=== PATIENT | female | born 1985 | race American Indian/Alaskan Native ===

== ENCOUNTER 2019-05-24 08:41 | Day surgery (SDC) | payer BC, MEDICAID ==
[2019-05-24] MEDS ORDERED: LACTATED RINGERS 1,000 ML IV SCH (09:00)
--- NOTE | 2019-05-24 09:17 | Short Stay Summary ---
Short Stay Documentation Date of service: 05/24/19 Narrative H&P: Pt is a 34yo BF LMP 05/21/19 presents for surgical evaluation and treatment of prolonged vaginal bleeding uncontrolled with hormonal therapy. - History Principal diagnosis: Menorrhagia H&P: obtained from office Past Medical History: hypertension, other (asthma) Past Surgical History: No surgical history Social history: no significant social history, single - Allergies and Medications Current Medications: Allergies atropine sulfate [From Lomotil] Allergy (Verified 05/18/19 17:19) Hives Home Medications Medication Instructions Recorded Confirmed Last Taken Type No Known Home Medications [No 05/18/19 05/18/19 Unknown History Reported Home Medications] Active Medications Lactated Ringer's (Lactated Ringers) 1,000 mls @ 100 mls/hr IV DIRECT ADELINE Last Admin: 05/24/19 09:11 Dose: 100 mls/hr Documented by: - Physical exam General appearance: no acute distress Integumentary: no rash HEENT: Atraumatic Lungs: Clear to auscultation Breasts: deferred Heart: Regular rate Gastrointestinal: normal Female Genitourinary: deferred Rectal Exam: deferred Extremities: no ischemia, No edema Neurological: Normal gait, Normal speech - Brief post op/procedure progress note Date of procedure: 05/24/19 Pre-op diagnosis: Menorrhagia Post-op diagnosis: same Procedure: 1. Hysteroscopy 2. Novasure endometrial ablation Anesthesia: MAC Findings: A 8-10 weeks size uterus with lush amounts of endometrial tissue. No submucosal masses seen. Surgeon: EVELYNE CANTU Estimated blood loss: 50-100ml Pathology: list (endometrial tissue) Specimen disposition: to lab Condition: stable - Hospital course Hospital course: Unremarkable. - Disposition Condition at discharge: Good Disposition: DC-01 TO HOME OR SELFCARE - Discharge Diagnoses (1) Menorrhagia with irregular cycle Status: Resolved Short Stay Discharge Plan Activity: no restrictions Diet: regular Follow up with: PRIMARY MD LEXX [Primary Care Provider] - 7 Days EVELYNE CANTU MD [Staff Physician] - 14 Days Prescriptions: Acetaminophen/Codeine [Tylenol /Codeine # 3 tab] 1 tab PO Q6H PRN #30 tab PRN Reason: Pain, Moderate (4-6)
[2019-05-24] MEDS ORDERED: BACTERIOSTATIC SODIUM CHLORIDE 0.9% 30 ML VIAL INFILTRATI ONE (09:18)
[2019-05-24] MEDS ORDERED: fentaNYL 100 MCG/2 ML INJ IV PRN (09:23)
--- NOTE | 2019-05-24 09:23 | Anesthesia Day of Surgery ---
Anesthesia Day of Surgery - Day of Surgery Patient Examined: Yes Patient H&P Reviewed: Yes Patient is NPO: Yes
--- NOTE | 2019-05-24 09:23 | Anesthesia Consultation ---
Anesthesia Consult and Med Hx Date of service: 05/24/19 - Airway Anesthetic Teeth Evaluation: Good (large cavity lower left molar) ROM Head & Neck: Adequate Mental/Hyoid Distance: Adequate Mallampati Class: Class I Intubation Access Assessment: Good - Pulmonary Exam CTA: Yes - Cardiac Exam Cardiac Exam: RRR - Pre-Operative Health Status ASA Pre-Surgery Classification: ASA2 Proposed Anesthetic Plan: General - Pulmonary Hx Smoking: Yes Hx Asthma: Yes (no symptoms in >10yrs) Hx Respiratory Symptoms: Yes (flu-like symptoms in 03/2019; now resolved) - Cardiovascular System Hx Hypertension: Yes (no antihypertensives) Hx Heart Attack/AMI: No Hx Percutaneous Transluminal Coronary Angioplasty (PTCA): No - Central Nervous System CVA: No - Gastrointestinal Hx Gastroesophageal Reflux Disease: Yes (gastritis, IBS) - Endocrine Hx Renal Disease: No Hx Liver Disease: No Hx Insulin Dependent Diabetes: No Hx Non-Insulin Dependent Diabetes: No Hx Thyroid Disease: No - Other Systems Hx Alcohol Use: Yes (Occas) Hx Obesity: Yes (BMI 33) - Additional Comments Anesthesia Medical History Comments: No hx anesthetic complications.
[2019-05-24] MEDS ORDERED: ONDANSETRON 4 MG/2 ML INJ ONE (09:24)
[2019-05-24] MEDS ORDERED: ROCURONIUM 50 MG/5 ML INJ IV ONE (09:24)
[2019-05-24] MEDS ORDERED: dexAMETHasone 20 MG/5 ML VIAL ONE (09:24)
[2019-05-24] MEDS ORDERED: LIDOCAINE MPF (2%) 20 MG/1 ML VIAL 5 ML ONE (09:24)
[2019-05-24] MEDS ORDERED: PROPOFOL 200 MG/20 ML VIAL IV ONE (09:29)
[2019-05-24 09:57] LABS: Hematocrit 33.9 % (30.3-42.9); Hemoglobin 10.8 gm/dl (10.1-14.3)
[2019-05-24] MEDS ORDERED: MIDAZOLAM 2 MG/2 ML INJ IV NR (10:00)
[2019-05-24] MEDS ORDERED: ceFAZolin/Water 2 GM/20 ML 2 GM/20 ML SYRINGE IV NR (10:00)
[2019-05-24] MEDS ORDERED: SODIUM CHLORIDE 0.9% IRRIG SOLN 3000 ML IR ONE (10:40)
--- NOTE | 2019-05-24 10:50 | Operative Report ---
Operative Report Operative Report: Date of procedure: 05/24/2019 Pre-operative diagnosis: Menorrhagia Post-operative diagnosis: Same Procedure name(s): 1. Hysteroscopy 2. NovaSure endometrial ablation Surgeon: Dr. Danny Collado Experimental Physicist: None Anesthesia: Gen. mask EBL: Minimal less than 10 mL Findings: An 8-10 week size uterus which sounded to 9 cm. Uterine length was 5.5 cm, width was 4.3 cm, and 130 W of Power was used for 74 seconds for the ablation Procedure: After the patient was correctly identified, and after general anesthesia was administered, she was prepped and draped in the usual sterile fashion placement in the dorsal lithotomy position. First the bladder was emptied with straight catheter, then a speculum was placed in the vaginal vault and anterior lip of the cervix was grasped using single-tooth tenaculum. The uterus was sounded to 9 cm, and the cervical os was sequentially dilated. The hysteroscope was introduced into the cervical canal, and endometrial cavity was observed and found to have lush endometrial tissue without endometrial polyps or submucosal masses. The hysteroscope was then removed and the NovaSure device was placed. The uterine length was 5.5 cm, the width was 4.3 cm, and after adequate placement, 130 W of Power was used to 74 seconds to perform the ablation. The NovaSure device was removed and replaced with a hysteroscope again, and visualization of the endometrial cavity showed excellent ablation of the entire cavity. At this point the procedure was considered complete. All instruments removed from the vagina. The patient tolerated the procedure well and was transferred to recovery in stable condition.
[2019-05-24] MEDS ORDERED: LACTATED RINGERS 1,000 ML ONE (11:01)
[2019-05-24] MEDS ORDERED: MEPERIDINE 25 MG/1 ML INJ IV PRN (11:20)
[2019-05-24 12:02] VITALS: BP 111/77
--- NOTE | 2019-05-24 15:01 | Post Anesthesia Evaluation ---
- Post Anesthesia Evaluation Patient Participated: Yes Airway Patent: Yes Stable Respiratory Function: Yes Nausea/Vomiting: No Temp > 96.8F: Yes Pain Manageable: Yes Adequeate Hydration: Yes Anesthesia Complications: No
== END 2019-05-24 12:44 | disposition home or self-care (01) ==
LOC: OR 08:41
PROVIDERS: ATTEND Obstetrics & Gynecology
DX: N92.0 Excessive and frequent menstruation with regular cycle (principal); I10 Essential (primary) hypertension; J45.909 Unspecified asthma, uncomplicated; K21.9 Gastro-esophageal reflux disease without esophagitis; G43.909 Migraine, unspecified, not intractable, without status migrainosus; E66.9 Obesity, unspecified; F17.210 Nicotine dependence, cigarettes, uncomplicated; Z88.8 Allergy status to other drugs, medicaments and biological substances; Z79.899 Other long term (current) drug therapy; Z68.33 Body mass index [BMI] 33.0-33.9, adult; Z72.89 Other problems related to lifestyle; Z98.890 Other specified postprocedural states
CPT/HCPCS: 36415; 58563; 81025; 85014; 85018; A4217; J0690; J1100; J2175; J2250; J2405; J2704; J3010; J7120